=== PATIENT | female | born 1985 | race Caucasian/White ===

== ENCOUNTER 2016-11-09 11:41 | Emergency (ER) | payer OTHER ==
--- NOTE | 2016-11-09 12:28 | ED NURSING NOTES ---
Clinical Report - Nurses [facility] [address] [place] [address] 11/09/2016 11:44 Patient: JOHANN ENCARNACION TRIAGE Triage time 11:50. Acuity: LEVEL 4. Chief Complaint: LEFT UPPER and LOWER TOOTHACHE and JAW PAIN and SWELLING OF JAW / FACE. 11:58 11/09/16. Alert. No acute distress. SEPSIS SCREEN: Sepsis Screen. Negative (no infection suspected/documented). NICOLE COMA SCORE: [place] Coma Scale: 15- eyes open spontaneously (4); best verbal response- oriented x 4 (5); best motor response- obeys commands (6). --11:58 Farzana Knowles R.N. 11:50 11/09/16. BP: 120/76. HR: 87. RR: 16. O2 saturation: 96%. Temp: 98.6 F. Pain level now: 01/05. --11:58 Farzana Knowles R.N. Weight: 69.3 kg stated. Height/Length: 63 inches Per Patient. BMI: 27.1. --11:57 Farzana Knowles R.N. Medications None. --11:54 Farzana Knowles R.N. Allergies None. --11:54 Farzana Knowles R.N. History Arrived by private vehicle. Historian: patient. ( Patient reports she spoke with a dentist in [place] this morning and was told to come to the ED to control the swelling.). This started yesterday. ( Patient states the pain has gotten significantly worse today.). She has no dental appointment scheduled. She has had ear pain (radiating from jaw). No fever or sinus pain. Treatment RN PROGRESSIVE CARE: None. PAST MEDICAL HX: No history of dental caries. No history of strep throat, abscess or mononucleosis. Immunizations: up-to-date. Last normal menstrual period was 2 weeks ago. Denies current . SOCIAL HX: Heavy tobacco smoker- less than 1 pack per day. History of occasional drug use: marijuana. No alcohol use. FALL RISK ASSESSMENT: Fall risk assessment completed. No fall risk identified. NUTRITIONAL RISK ASSESSMENT: The nutritional risk assessment revealed no deficiencies. FUNCTIONAL ASSESSMENT: Functional assessment: no impairments noted. LEARNING NEEDS ASSESSMENT: The learning needs assessment revealed no barriers. SKIN INTEGRITY ASSESSMENT: Skin integrity risk assessment completed. No skin integrity risk identified. --11:58 Farzana Knowles R.N. PROBLEMS: Eye Injury. Sprain. Abdominal Pain. Immunizations. Ovarian Cyst. Vertigo. Back Pain. Tetanus Status. LNMP - Last Normal Menstrual Period. --11:55 Farzana Knowles R.N. Keratitis [RuleOut]. Corneal Abrasion [RuleOut]. --11:55 Farzana Knowles R.N. ADDITIONAL SURGERIES: Appendectomy. Oophorectomy. Salpingectomy. --11:55 Farzana Knowles R.N. Interventions ID band on patient. To treatment room. --11:58 Farzana Knowles R.N. PHYSICAL ASSESSMENT 11:59 11/09/16. GENERAL / NEURO / PSYCH: Alert. Oriented X 4. Appears in no acute distress. HEENT: Voice within normal limits. Dental tenderness (left upper molar, lower molar). Dental decay (left lower molar area). The mucous membranes are not dry. No mouth ulcerations. Mucous membranes are pink. CVS: Capillary refill less than 2 seconds. SKIN: Skin is warm and dry. Normal skin turgor. --12:00 Farzana Knowles R.N. NURSING PROGRESS NOTES 12:00 11/09/16. Two patient identifiers checked. Call light placed in reach. Side rails up x 1. Bed placed in lowest position. Brakes of bed on. Patient ready for evaluation- chart flagged and notification provided. --12:00 Farzana Knowles R.N. DISPOSITION / DISCHARGE 12:39 11/09/16. No learning barriers present. Discharge instructions provided and reviewed with the patient. Reviewed warnings. Reviewed medication(s). Reviewed referrals. Patient verbalized understanding. Written instructions provided in [place]. The patient was discharged by the physician. She was discharged home. She left the Emergency Department ambulatory and via private vehicle. Patient driving. --12:39 Farzana Knowles R.N. 11:50 11/09/16. BP: 120/76. HR: 87. RR: 16. O2 saturation: 96%. Temp: 98.6 F. Pain level now: 01/05. --12:39 Farzana Knowles R.N. Locked/Released at 11/09/2016 18:54 by Farzana Knowles R.N.
--- NOTE | 2016-11-09 12:28 | ED CLINICAL REPORT ---
Clinical Report - Physicians/Mid Levels [facility] [address] [place] [address] 11/09/2016 11:44 Patient: JOHANN ENCARNACION Time Seen: 12:21 Nov 09 2016. Arrived- By private vehicle. Historian- patient. CPT: ER phys charges level 3 (#[id number]). HISTORY OF PRESENT ILLNESS Chief Complaint: DENTAL PAIN. This started yesterday LEFT UPPER and LOWER TOOTHACHE and JAW PAIN and SWELLING OF JAW / FACE. Pain described as moderate. The patient has had toothache and swelling of the jaw and face. (( Patient reports she spoke with a dentist in [place] this morning and was told to come to the ED to control the swelling.).). Similar symptoms previously: As bad. Recent medical care: Not recently seen/assessed. REVIEW OF SYSTEMS No fever, eye discomfort, cough, difficulty breathing or chest pain. No nausea, diarrhea, abdominal pain, fainting episodes or joint pain. No skin rash or vomiting. Denies current . All systems otherwise negative, except as recorded above. PAST HISTORY Eye Injury. Sprain. Abdominal Pain. Immunizations. Ovarian Cyst. Vertigo. Back Pain. Tetanus Status. LNMP - Last Normal Menstrual Period. Keratitis [RuleOut]. Corneal Abrasion ADDITIONAL SURGERIES: Appendectomy. Oophorectomy. Salpingectomy. Medications: None. Allergies: None. SOCIAL HISTORY Heavy tobacco smoker (cigarette)- less than 1 pack per day. History of occasional drug use: marijuana. No alcohol use. ADDITIONAL NOTES The nursing notes have been reviewed. PHYSICAL EXAM Vital Signs: 11/09/2016 11:50 BP: 120/76. HR: 87. RR: 16. O2 saturation: 96%. Temp: 98.6 F. Pain level now: 6/10. Appearance: Alert. Patient in moderate distress. Head: Normal external inspection. Eyes: Pupils equal, round and reactive to light. Conjunctivae and eyelids normal. ENT: Moderate dental tenderness (lower left second molar). Pharynx normal. Lips normal. Gums normal. No trismus present. Uvula midline. Neck: No adenopathy. CVS: Normal heart rate and rhythm. Heart sounds normal. Pulses normal. Respiratory: No respiratory distress. Breath sounds normal. Chest nontender. Abdomen: Soft and nontender. Skin: Normal skin color. No rash. Extremities: Extremities exhibit normal ROM. Extremities nontender. Neuro: Oriented X 3. No motor deficit. No sensory deficit. PROGRESS AND PROCEDURES Patient/family counseled. Disposition: Discharged. Condition: stable. CLINICAL IMPRESSION Moderate dental pain (left lower 3rd molar.). INSTRUCTIONS Warnings: Further evaluation is necessary. Prescription Medications: Hydrocodone/APAP 5mg/325mg: take 1 to 2 orally every 6 hours as needed for pain. Dispense fifteen (15). No refills. Penicillin V 500mg: take 1 tab orally every 6 hours for 10 days. Dispense forty (40). No refill Follow-up: Follow up with a dentist. Call for the next available appointment. Understanding of the discharge instructions verbalized by patient. (Electronically signed by Scott Chavarria MD 11/12/2016 23:28)
--- NOTE | 2016-11-09 12:28 | ED CLINICAL REPORT ---
Clinical Report - Physicians/Mid Levels [facility] [address] [place] [address] 11/09/2016 11:44 Patient: JOHANN ENCARNACION Time Seen: 12:21 Nov 09 2016. Arrived- By private vehicle. Historian- patient. CPT: ER phys charges level 3 (#[id number]). HISTORY OF PRESENT ILLNESS Chief Complaint: DENTAL PAIN. This started yesterday LEFT UPPER and LOWER TOOTHACHE and JAW PAIN and SWELLING OF JAW / FACE. Pain described as moderate. The patient has had toothache and swelling of the jaw and face. (( Patient reports she spoke with a dentist in [place] this morning and was told to come to the ED to control the swelling.).). Similar symptoms previously: As bad. Recent medical care: Not recently seen/assessed. REVIEW OF SYSTEMS No fever, eye discomfort, cough, difficulty breathing or chest pain. No nausea, diarrhea, abdominal pain, fainting episodes or joint pain. No skin rash or vomiting. Denies current . All systems otherwise negative, except as recorded above. PAST HISTORY Eye Injury. Sprain. Abdominal Pain. Immunizations. Ovarian Cyst. Vertigo. Back Pain. Tetanus Status. LNMP - Last Normal Menstrual Period. Keratitis [RuleOut]. Corneal Abrasion ADDITIONAL SURGERIES: Appendectomy. Oophorectomy. Salpingectomy. Medications: None. Allergies: None. SOCIAL HISTORY Heavy tobacco smoker (cigarette)- less than 1 pack per day. History of occasional drug use: marijuana. No alcohol use. ADDITIONAL NOTES The nursing notes have been reviewed. PHYSICAL EXAM Vital Signs: 11/09/2016 11:50 BP: 120/76. HR: 87. RR: 16. O2 saturation: 96%. Temp: 98.6 F. Pain level now: 6/10. Appearance: Alert. Patient in moderate distress. Head: Normal external inspection. Eyes: Pupils equal, round and reactive to light. Conjunctivae and eyelids normal. ENT: Moderate dental tenderness (lower left second molar). Pharynx normal. Lips normal. Gums normal. No trismus present. Uvula midline. Neck: No adenopathy. CVS: Normal heart rate and rhythm. Heart sounds normal. Pulses normal. Respiratory: No respiratory distress. Breath sounds normal. Chest nontender. Abdomen: Soft and nontender. Skin: Normal skin color. No rash. Extremities: Extremities exhibit normal ROM. Extremities nontender. Neuro: Oriented X 3. No motor deficit. No sensory deficit. PROGRESS AND PROCEDURES Patient/family counseled. Disposition: Discharged. Condition: stable. CLINICAL IMPRESSION Moderate dental pain (left lower 3rd molar.). INSTRUCTIONS Warnings: Further evaluation is necessary. Prescription Medications: Hydrocodone/APAP 5mg/325mg: take 1 to 2 orally every 6 hours as needed for pain. Dispense fifteen (15). No refills. Penicillin V 500mg: take 1 tab orally every 6 hours for 10 days. Dispense forty (40). No refill Follow-up: Follow up with a dentist. Call for the next available appointment. Understanding of the discharge instructions verbalized by patient. (Electronically signed by Scott Chavarria MD 11/12/2016 23:28)
--- NOTE | 2016-11-09 12:28 | ED NURSING NOTES ---
Clinical Report - Nurses [facility] [address] [place] [address] 11/09/2016 11:44 Patient: JOHANN ENCARNACION TRIAGE Triage time 11:50. Acuity: LEVEL 4. Chief Complaint: LEFT UPPER and LOWER TOOTHACHE and JAW PAIN and SWELLING OF JAW / FACE. 11:58 11/09/16. Alert. No acute distress. SEPSIS SCREEN: Sepsis Screen. Negative (no infection suspected/documented). NICOLE COMA SCORE: [place] Coma Scale: 15- eyes open spontaneously (4); best verbal response- oriented x 4 (5); best motor response- obeys commands (6). --11:58 Farzana Knowles R.N. 11:50 11/09/16. BP: 120/76. HR: 87. RR: 16. O2 saturation: 96%. Temp: 98.6 F. Pain level now: 01/05. --11:58 Farzana Knowles R.N. Weight: 69.3 kg stated. Height/Length: 63 inches Per Patient. BMI: 27.1. --11:57 Farzana Knowles R.N. Medications None. --11:54 Farzana Knowles R.N. Allergies None. --11:54 Farzana Knowles R.N. History Arrived by private vehicle. Historian: patient. ( Patient reports she spoke with a dentist in [place] this morning and was told to come to the ED to control the swelling.). This started yesterday. ( Patient states the pain has gotten significantly worse today.). She has no dental appointment scheduled. She has had ear pain (radiating from jaw). No fever or sinus pain. 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 PAST MEDICAL HX: No history of dental caries. No history of strep throat, abscess or mononucleosis. Immunizations: up-to-date. Last normal menstrual period was 2 weeks ago. Denies current . SOCIAL HX: Heavy tobacco smoker- less than 1 pack per day. History of occasional drug use: marijuana. No alcohol use. FALL RISK ASSESSMENT: Fall risk assessment completed. No fall risk identified. NUTRITIONAL RISK ASSESSMENT: The nutritional risk assessment revealed no deficiencies. FUNCTIONAL ASSESSMENT: Functional assessment: no impairments noted. LEARNING NEEDS ASSESSMENT: The learning needs assessment revealed no barriers. SKIN INTEGRITY ASSESSMENT: Skin integrity risk assessment completed. No skin integrity risk identified. --11:58 Farzana Knowles R.N. PROBLEMS: Eye Injury. Sprain. Abdominal Pain. Immunizations. Ovarian Cyst. Vertigo. Back Pain. Tetanus Status. LNMP - Last Normal Menstrual Period. --11:55 Farzana Knowles R.N. Keratitis [RuleOut]. Corneal Abrasion [RuleOut]. --11:55 Farzana Knowles R.N. ADDITIONAL SURGERIES: Appendectomy. Oophorectomy. Salpingectomy. --11:55 Farzana Knowles R.N. Interventions ID band on patient. To treatment room. --11:58 Farzana Knowles R.N. PHYSICAL ASSESSMENT 11:59 11/09/16. GENERAL / NEURO / PSYCH: Alert. Oriented X 4. Appears in no acute distress. HEENT: Voice within normal limits. Dental tenderness (left upper molar, lower molar). Dental decay (left lower molar area). The mucous membranes are not dry. No mouth ulcerations. Mucous membranes are pink. CVS: Capillary refill less than 2 seconds. SKIN: Skin is warm and dry. Normal skin turgor. --12:00 Farzana Knowles R.N. NURSING PROGRESS NOTES 12:00 11/09/16. Two patient identifiers checked. Call light placed in reach. Side rails up x 1. Bed placed in lowest position. Brakes of bed on. Patient ready for evaluation- chart flagged and notification provided. --12:00 Farzana Knowles R.N. DISPOSITION / DISCHARGE 12:39 11/09/16. No learning barriers present. Discharge instructions provided and reviewed with the patient. Reviewed warnings. Reviewed medication(s). Reviewed referrals. Patient verbalized understanding. Written instructions provided in [place]. The patient was discharged by the physician. She was discharged home. She left the Emergency Department ambulatory and via private vehicle. Patient driving. --12:39 Farzana Knowles R.N. 11:50 11/09/16. BP: 120/76. HR: 87. RR: 16. O2 saturation: 96%. Temp: 98.6 F. Pain level now: 01/05. --12:39 Farzana Knowles R.N. Locked/Released at 11/09/2016 18:54 by Farzana Knowles R.N.
--- NOTE | 2016-11-12 23:28 | ED DISCHARGE INSTRUCTIONS ---
Patient: JOHANN ENCARNACION General Instructions [facility] VisitID: [id number] [place] [address] 30y, F Registration Date/Time: 11/09/2016 Moderate dental pain (left lower 3rd molar.). INSTRUCTIONS Warnings: Further evaluation is necessary. Prescription Medications: Hydrocodone/APAP 5mg/325mg: take 1 to 2 orally every 6 hours as needed for pain. Dispense fifteen (15). No refills. Penicillin V 500mg: take 1 tab orally every 6 hours for 10 days. Dispense forty (40). No refill Follow-up: Follow up with a dentist. Call for the next available appointment. Understanding of the discharge instructions verbalized by patient. ADDITIONAL INFORMATION Dental Pain A crack or cavity in the tooth, which exposes the sensitive inner area of the tooth can cause tooth pain. An infection in the gum or the root of the tooth can cause pain and swelling. The pain is often made worse by drinking hot or cold fluids, or biting on hard foods. Pain may spread from the tooth to the ear or jaw on the same side. Home Care: Avoid hot and cold foods and liquids since your tooth may be sensitive to temperature changes. If your tooth is chipped or cracked, or if there is a large open cavity, apply OIL OF CLOVES (available lezv-mhi-stbiosd in drug stores) directly to the tooth to reduce pain. Some pharmacies carry an xzvz-wgs-jvvbgnh "toothache kit." This contains a paste, which can be applied over the exposed tooth to decrease sensitivity. A cold pack on your jaw over the sore area may help reduce pain. You may use acetaminophen (Tylenol) or ibuprofen (Motrin, Advil) to control pain, unless another medicine was prescribed. [ NOTE: If you have chronic liver or kidney disease or ever had a stomach ulcer or GI bleeding, talk with your doctor before using these medicines.] If you have signs of an infection, an antibiotic will be given. Take it as directed. Follow-Up as directed with a dentist. Your pain may go away with the treatment given. However, only a dentist can fully evaluate and treat the cause and prevent the pain from coming back again. TOOTHACHE IS A SIGN OF DISEASE IN YOUR TOOTH AND SHOULD BE EXAMINED AND TREATED BY A DENTIST. Get Prompt Medical Attention if any of the following occur: Your face becomes swollen or red Pain worsens or spreads to the neck Fever over 100.4 F (38.0 C) Unusual drowsiness; headache or stiff neck; weakness or fainting Pus drains from the tooth Difficulty swallowing or breathing Dental Cavity A dental cavity is a pit or crater in the enamel surface of the tooth. This exposes the sensitive inner layer of the tooth and causes pain. If untreated, the cavity will get bigger and may cause an infection or abscess in the root of the tooth. An infection in the tooth is a much more serious problem and may require a root canal or removal of the entire tooth. The tooth pain may be made worse by drinking hot or cold fluids. It may spread from the tooth to the ear or jaw on the same side. Home Care: Avoid hot and cold foods, and liquids since your tooth may be sensitive to temperature changes. If your tooth is chipped or cracked, or if there is a large open cavity, apply OIL OF CLOVES (available gkzp-kli-vpxvevt in drug stores) directly to the tooth to reduce pain. Some pharmacies carry an lkul-oaf-junhvjn "toothache kit." This contains oil of cloves and a paste, which can be applied over the exposed tooth to decrease sensitivity. An ice pack on your jaw over the sore area may help to reduce pain. You may use acetaminophen (Tylenol) or ibuprofen (Motrin, Advil) to control pain, unless another pain medicine was prescribed. [ NOTE: If you have liver disease or ever had a stomach ulcer, talk with your doctor before using these medicines.] If you have signs of an infection, an antibiotic will be given. Take it as directed. Follow-Up with your dentist as directed. Although your pain may go away with the treatment given, only a dentist can fully evaluate and treat this problem to prevent further tooth damage. Get Prompt Medical Attention if any of the following occur: Redness or swelling of the face Pain worsens or spreads to the neck Fever over 100.5 F (38C) Unusual drowsiness; headache or stiff neck; weakness or fainting Pus drains from the tooth or gum Difficulty swallowing or breathing Dental Abscess A dental abscess is an infection of the tooth socket. It often starts with a crack or cavity in the tooth. A pocket of pus forms between the tooth and the bone. The infection causes pain and swelling of the gum, cheek or jaw. The pain is often made worse by drinking hot or cold fluids, or biting on hard foods. Pain may be felt in the facial sinus or in the ear. A severe infection can interfere with swallowing and breathing. In the emergency department or clinic, you will be started on an antibiotic. However, final treatment requires drainage of the pus. This can be done by removing the tooth or performing a root canal. A root canal is done by an oral surgeon and involves drilling an opening in the tooth to drain the pus. After the infection has healed, a crown is placed over the tooth. Home care The following guidelines will help you care for your abscess at home: Avoid hot and cold foods and liquids since your tooth may be sensitive to temperature changes. If your tooth is chipped or cracked, or if there is a large open cavity, applyoil of cloves(available odbc-hfi-ayfvhbh in drug stores) directly to the tooth to reduce pain. Some pharmacies carry an pxsl-dnr-ozidtuk "toothache kit". This contains oil of cloves and a paste, which can be applied over the exposed tooth to decrease sensitivity. Apply an ice pack (ice cubes in a plastic bag, wrapped in a towel) over the injured area for 20 minutes every 12 hours the first day for pain relief. Continue this 34 times a day until the pain and swelling goes away. You may use acetaminophen or ibuprofen to control pain, unless another medicine was prescribed. If you have chronic liver or kidney disease or ever had a stomach ulcer or GI bleeding, talk with your doctor before using these medicines. An antibiotic will be prescribed. Take it as directed until completed, even if you are feeling better sooner. Follow-up care Follow up as directed with a dentist or oral surgeon. Even though your pain may improve with the treatment given today, only a dentist or oral surgeon can provide full treatment for this problem. When to seek medical care Get prompt medical attention or contact your doctor if any of the following occur: Your face or eyelid becomes swollen or red Pain worsens or spreads to the neck Fever over 100.4F (38.0C) Unusual drowsiness; headache or stiff neck; weakness, or fainting Pus drains from the gum or tooth Difficulty talking, swallowing or breathing Unable to open your mouth wide You have been given the following additional information: Dental Pain Dental Cavity Tooth Abscess (Electronically signed by Scott Chavarria MD 11/12/2016 23:28)
--- NOTE | 2016-11-12 23:28 | ED DISCHARGE INSTRUCTIONS ---
Patient: JOHANN ENCARNACION General Instructions [facility] VisitID: [id number] [place] [address] 30y, F Registration Date/Time: 11/09/2016 Moderate dental pain (left lower 3rd molar.). INSTRUCTIONS Warnings: Further evaluation is necessary. Prescription Medications: Hydrocodone/APAP 5mg/325mg: take 1 to 2 orally every 6 hours as needed for pain. Dispense fifteen (15). No refills. Penicillin V 500mg: take 1 tab orally every 6 hours for 10 days. Dispense forty (40). No refill Follow-up: Follow up with a dentist. Call for the next available appointment. Understanding of the discharge instructions verbalized by patient. ADDITIONAL INFORMATION Dental Pain A crack or cavity in the tooth, which exposes the sensitive inner area of the tooth can cause tooth pain. An infection in the gum or the root of the tooth can cause pain and swelling. The pain is often made worse by drinking hot or cold fluids, or biting on hard foods. Pain may spread from the tooth to the ear or jaw on the same side. Home Care: Avoid hot and cold foods and liquids since your tooth may be sensitive to temperature changes. If your tooth is chipped or cracked, or if there is a large open cavity, apply OIL OF CLOVES (available kuwm-ruc-vxgbgnz in drug stores) directly to the tooth to reduce pain. Some pharmacies carry an gxyd-aul-abnkpgq "toothache kit." This contains a paste, which can be applied over the exposed tooth to decrease sensitivity. A cold pack on your jaw over the sore area may help reduce pain. You may use acetaminophen (Tylenol) or ibuprofen (Motrin, Advil) to control pain, unless another medicine was prescribed. [ NOTE: If you have chronic liver or kidney disease or ever had a stomach ulcer or GI bleeding, talk with your doctor before using these medicines.] If you have signs of an infection, an antibiotic will be given. Take it as directed. Follow-Up as directed with a dentist. Your pain may go away with the treatment given. However, only a dentist can fully evaluate and treat the cause and prevent the pain from coming back again. TOOTHACHE IS A SIGN OF DISEASE IN YOUR TOOTH AND SHOULD BE EXAMINED AND TREATED BY A DENTIST. Get Prompt Medical Attention if any of the following occur: Your face becomes swollen or red Pain worsens or spreads to the neck Fever over 100.4 F (38.0 C) Unusual drowsiness; headache or stiff neck; weakness or fainting Pus drains from the tooth Difficulty swallowing or breathing Dental Cavity A dental cavity is a pit or crater in the enamel surface of the tooth. This exposes the sensitive inner layer of the tooth and causes pain. If untreated, the cavity will get bigger and may cause an infection or abscess in the root of the tooth. An infection in the tooth is a much more serious problem and may require a root canal or removal of the entire tooth. The tooth pain may be made worse by drinking hot or cold fluids. It may spread from the tooth to the ear or jaw on the same side. Home Care: Avoid hot and cold foods, and liquids since your tooth may be sensitive to temperature changes. If your tooth is chipped or cracked, or if there is a large open cavity, apply OIL OF CLOVES (available oxap-vbl-feyigov in drug stores) directly to the tooth to reduce pain. Some pharmacies carry an pzih-xni-ezsblzp "toothache kit." This contains oil of cloves and a paste, which can be applied over the exposed tooth to decrease sensitivity. An ice pack on your jaw over the sore area may help to reduce pain. You may use acetaminophen (Tylenol) or ibuprofen (Motrin, Advil) to control pain, unless another pain medicine was prescribed. [ NOTE: If you have liver disease or ever had a stomach ulcer, talk with your doctor before using these medicines.] If you have signs of an infection, an antibiotic will be given. Take it as directed. Follow-Up with your dentist as directed. Although your pain may go away with the treatment given, only a dentist can fully evaluate and treat this problem to prevent further tooth damage. Get Prompt Medical Attention if any of the following occur: Redness or swelling of the face Pain worsens or spreads to the neck Fever over 100.5 F (38C) Unusual drowsiness; headache or stiff neck; weakness or fainting Pus drains from the tooth or gum Difficulty swallowing or breathing Dental Abscess A dental abscess is an infection of the tooth socket. It often starts with a crack or cavity in the tooth. A pocket of pus forms between the tooth and the bone. The infection causes pain and swelling of the gum, cheek or jaw. The pain is often made worse by drinking hot or cold fluids, or biting on hard foods. Pain may be felt in the facial sinus or in the ear. A severe infection can interfere with swallowing and breathing. In the emergency department or clinic, you will be started on an antibiotic. However, final treatment requires drainage of the pus. This can be done by removing the tooth or performing a root canal. A root canal is done by an oral surgeon and involves drilling an opening in the tooth to drain the pus. After the infection has healed, a crown is placed over the tooth. Home care The following guidelines will help you care for your abscess at home: Avoid hot and cold foods and liquids since your tooth may be sensitive to temperature changes. If your tooth is chipped or cracked, or if there is a large open cavity, applyoil of cloves(available nuxf-zbi-pyjiqdg in drug stores) directly to the tooth to reduce pain. Some pharmacies carry an eavo-ewf-evjrezc "toothache kit". This contains oil of cloves and a paste, which can be applied over the exposed tooth to decrease sensitivity. Apply an ice pack (ice cubes in a plastic bag, wrapped in a towel) over the injured area for 20 minutes every 12 hours the first day for pain relief. Continue this 34 times a day until the pain and swelling goes away. You may use acetaminophen or ibuprofen to control pain, unless another medicine was prescribed. If you have chronic liver or kidney disease or ever had a stomach ulcer or GI bleeding, talk with your doctor before using these medicines. An antibiotic will be prescribed. Take it as directed until completed, even if you are feeling better sooner. Follow-up care Follow up as directed with a dentist or oral surgeon. Even though your pain may improve with the treatment given today, only a dentist or oral surgeon can provide full treatment for this problem. When to seek medical care Get prompt medical attention or contact your doctor if any of the following occur: Your face or eyelid becomes swollen or red Pain worsens or spreads to the neck Fever over 100.4F (38.0C) Unusual drowsiness; headache or stiff neck; weakness, or fainting Pus drains from the gum or tooth Difficulty talking, swallowing or breathing Unable to open your mouth wide You have been given the following additional information: Dental Pain Dental Cavity Tooth Abscess (Electronically signed by Scott Chavarria MD 11/12/2016 23:28)
--- NOTE | 2016-11-12 23:29 | ED MED RECONCILIATION SUMMARY ---
Patient: JOHANN ENCARNACION Medication Reconciliation Report [facility] VisitID: [id number] [address] [place] [address] 30y, F Registration Date/Time: 11/09/2016 Weight: 69.3 kg Height/Length: 63 in. BMI: 27.1 ALLERGIES: None The patient's Home Medications are listed below: NONE. The source(s) of the original Home Medication information: Not obtained. The following Medications were given to the patient in the Emergency Department: None. The following Medications were prescribed to the patient: Hydrocodone/APAP 5mg/325mg: take 1 to 2 orally every 6 hours as needed for pain. Dispense fifteen (15). No refills. -- Scott Chavarria MD Penicillin V 500mg: take 1 tab orally every 6 hours for 10 days. Dispense forty (40). No refill -- Scott Chavarria MD
--- NOTE | 2016-11-12 23:29 | ED MAR SUMMARY ---
..... Medication Administration Record [facility] [address] [place], [place] [id number] Patient: JOHANN ENCARNACION Visit ID: [id number] 30y, F Weight: 69.3 kg Height/Length: 63 in BMI: 27.1 ALLERGIES: None
--- NOTE | 2016-11-12 23:29 | ED MED RECONCILIATION SUMMARY ---
Patient: JOHANN ENCARNACION Medication Reconciliation Report [facility] VisitID: [id number] [address] [place] [address] 30y, F Registration Date/Time: 11/09/2016 Weight: 69.3 kg Height/Length: 63 in. BMI: 27.1 ALLERGIES: None The patient's Home Medications are listed below: NONE. The source(s) of the original Home Medication information: Not obtained. The following Medications were given to the patient in the Emergency Department: None. The following Medications were prescribed to the patient: Hydrocodone/APAP 5mg/325mg: take 1 to 2 orally every 6 hours as needed for pain. Dispense fifteen (15). No refills. -- Scott Chavarria MD Penicillin V 500mg: take 1 tab orally every 6 hours for 10 days. Dispense forty (40). No refill -- Scott Chavarria MD
--- NOTE | 2016-11-12 23:29 | ED MAR SUMMARY ---
..... Medication Administration Record [facility] [address] [place], [place] [id number] Patient: JOHANN ENCARNACION Visit ID: [id number] 30y, F Weight: 69.3 kg Height/Length: 63 in BMI: 27.1 ALLERGIES: None
== END 2016-11-09 12:35 | disposition home or self-care (01) ==
LOC: ED SRH 11:41
DX: K08.89 Other specified disorders of teeth and supporting structures (principal); F17.219 Nicotine dependence, cigarettes, with unspecified nicotine-induced disorders